=== PATIENT | male | born 1945 | race Caucasian/White ===

== ENCOUNTER 2024-08-22 06:11 | Observation (INO) | payer OTHER ==
[2024-08-22 06:41] LABS: #Basophils 0.03 10x3/uL (0.0-0.2); %Basophils 0.3 % (0.0-1.0); %Eosinophils 1.1 % (0.0-10.0); %Lymphocytes 24.3 % (21.0-51.0); %Neutrophils 66.2 % (42.0-75.0); Hematocrit 49.5 % (42.0-52.0); Hemoglobin 15.7 g/dL (14.0-18.0); Mean Corpuscular HGB CONC 31.7 g/dL (32.0-36.0); Mean Corpuscular Hemoglobin 27.4 pg (27.0-31.0); Mean Corpuscular Volume 86.2 fL (78.0-98.0); Mean Platelet Volume 11.7 fL (7.4-10.4); Platelet Count 194 10x3/uL (130-400); RBC Distribution Width 13.2 % (11.5-14.5); Red Blood Cell (RBC) Count 5.74 mill/uL (4.70-6.10)
[2024-08-22 07:08] LABS: Troponin I 0.013 ng/mL (< 0.028)
[2024-08-22 07:10] LABS: ALT (SGPT) 15 U/L (8-55); AST (SGOT) 22 U/L (5-34); Albumin 3.6 g/dL (3.4-4.8); Alkaline Phosphatase 81 U/L (40-110); Anion Gap 16 mmol/L (10-20); BUN (Urea Nitrogen) 14 mg/dL (8.4-25.7); Bilirubin, Total 0.6 mg/dL (0.2-1.2); Calc. Creatinine Clearance 0 mL/min (70-130); Carbon Dioxide 24 mmol/L (23-31); Chloride 108 mmol/L (98-107); Estimated GFR 78; Globulin 3.8 g/dL (2.4-3.5); Glucose 133 mg/dL (83-110); Potassium 4.7 mmol/L (3.5-5.1); Protein, Total 7.4 g/dL (5.8-8.1); Sodium 143 mmol/L (136-145)
[2024-08-22] MEDS ORDERED: Ondansetron PF 4 MG/2 ML Vial ONE (07:15)
[2024-08-22] MEDS ORDERED: Morphine 4 MG/ML VIAL ONE ×2 (07:15→08:33)
[2024-08-22] MEDS ORDERED: LevoFLOXacin 750 mg/D5W 150 ml Premix Bag ONE (09:59)
[2024-08-22] MEDS ORDERED: Ketorolac Tromethamine 30 MG (1 mL) VIAL ONE (09:59)
[2024-08-22 12:26] VITALS: BMI 37.6
[2024-08-22] MEDS ORDERED: traMADol HCl 50 MG TAB PO PRN (12:31)
[2024-08-22] MEDS ORDERED: Ondansetron ODT 4 MG TAB PO PRN (12:31)
[2024-08-22] MEDS ORDERED: Morphine 4 MG/ML VIAL SLOW IVP PRN (12:31)
[2024-08-22] MEDS ORDERED: Ondansetron PF 4 MG/2 ML Vial IVP PRN (12:31)
[2024-08-22] MEDS ORDERED: Acetaminophen 325 MG TAB PO SCH (13:00)
[2024-08-22] MEDS: Ketorolac Tromethamine 30 MG (1 mL) VIAL IVP SCH ×2 (14:49→17:14)
[2024-08-22] MEDS: Sodium Chloride 0.45% 1,000 ML IV SCH (14:50)
[2024-08-22] MEDS: Acetaminophen 500 MG TAB PO SCH (17:12)
[2024-08-23] MEDS: LevoFLOXacin 750 mg/D5W 750 MG in Premix 1 BAG IVPB SCH (09:39)
[2024-08-23] MEDS ORDERED: Bupivacaine PF 0.5% 30 ML VIAL ONE (12:12)
[2024-08-23] MEDS ORDERED: EPINEPHrine 1 MG/ML VIAL ONE (12:12)
[2024-08-23] MEDS ORDERED: Fentanyl 250 MCG/5 ML VIAL ONE (12:19)
[2024-08-23] MEDS ORDERED: PROPOFOL 20 ML ONE (12:20)
[2024-08-23] MEDS ORDERED: Ibuprofen 600 MG TAB PO PRN (12:36)
[2024-08-23] MEDS ORDERED: Glycopyrrolate 0.2 MG/ML 5 ML SYRINGE ONE (12:51)
[2024-08-23] MEDS ORDERED: ePHEDrine Sulfate 50 MG/10 ML VIAL ONE (12:59)
[2024-08-23] MEDS ORDERED: SUGAMMADEX SODIUM 200 MG/2 ML VIAL ONE (13:04)
[2024-08-23] MEDS ORDERED: PHENYLEPHRINE-NS 100 MCG/ML 10 ML SYRINGE ONE (13:05)
[2024-08-23] MEDS ORDERED: Lidocaine 2% PF 5 ML VIAL ONE (13:18)
[2024-08-23] MEDS ORDERED: Promethazine HCl 25 MG/ML VIAL IM PRN (13:42)
[2024-08-23] MEDS ORDERED: HYDROmorphone 2 MG/ML VIAL SLOW IVP PRN (13:42)
[2024-08-23] MEDS ORDERED: Meperidine HCl/PF 25 MG/ML VIAL SLOW IVP PRN (13:42)
[2024-08-23 16:30] VITALS: BP 163/81; TEMP 97.5
== END 2024-08-23 17:36 | disposition home or self-care (01) ==
LOC: ERS 06:11 → SURG A 12:22
PROVIDERS: ADMIT Specialist; ATTEND Specialist
PROC: 0FT44ZZ Resection of Gallbladder, Percutaneous Endoscopic Approach (ICD-10-PCS; principal; 2024-08-23)
PROC: B246ZZZ Ultrasonography of Right and Left Heart (ICD-10-PCS; 2024-08-23)
DX: K80.12 Calculus of gallbladder with acute and chronic cholecystitis without obstruction (principal); I25.10 Atherosclerotic heart disease of native coronary artery without angina pectoris; R00.1 Bradycardia, unspecified; Z79.01 Long term (current) use of anticoagulants; Z79.899 Other long term (current) drug therapy
CPT/HCPCS: 36415; 71045; 71275; 74174; 76705; 80053; 83690; 83880; 84443; 84484; 85025; 88304; 93005; 93306; 96365; 96375; 96376; C1889; G0378; J0171; J0665; J1885; J1956; J2272; J2405; J2704; J3010